=== PATIENT | female | born 1935 | race Caucasian/White ===

== ENCOUNTER 2017-05-15 14:01 | Inpatient (IN) | payer MEDICARE ==
[~2017-05-15] VITALS: Ht 160 cm; Wt 95.0 kg
[~2017-05-15 14:01] MED LIST: AMARYL4 MG PO; APAP/CODEINE ELI5 M1 PO; ASPIR 8181 MG PO; BENICAR; FISH OIL 1,001000 M2 PO; GLUCOPHAGE XR500 MG; GLUCOPHAGE1000 MG PO; GLUCOSAMINE HC500 MG PO; HYDROCODON-ACE1 EAC7 PO; HYDROCODONE-AP1 EAC6 PO; KEFLEX500 M1 PO; LISINOPRIL; LOSARTAN POTAS100 MG PO; MOBIC; MULTIVITAMINS1 EAC7 PO; NITROGLYCERIN0.4 MG SUBLING; OMEPRAZOLE 20 M20 M1 PO; PACERONE 200 M200 M1 PO; PLAVIX 75 MG TA75 M1 PO; PROAIR HFA8.5 GM IH; PROBIOTIC1 EAC1 PO; TOPROL XL50 MG PO; TUMS PO; TYLENOL325 MG PO; ZOCOR; ZOCOR20 MG PO; ZPAK PO
[2017-05-15 14:07] VITALS: BP 155/83
[2017-05-15] MEDS ORDERED: LISINOPRIL10 MG PO (14:11)
[2017-05-15 15:59] LABS: MCH 28.9 pg (26.0-34.0); MCHC 32.7 g/dL (28.0-37.0); MCV 88.4 fL (80.0-100.0); MPV 9.2 fl. (7.2-11.1); NUCLEATED RBCS 0 /100WBC; PLATELET COUNT* 178 thou/uL (150-400); RBC 4.86 mil/uL (4.20-5.00); RDW-CV 14.6 % (10.5-14.5); WBC 16.9 thou/uL (4.0-11.0)
[2017-05-15 16:04] LABS: APTT 21.6 Seconds (25.0-31.3); INR 1.1; PROTIME 10.6 Seconds (9.20-11.50)
[2017-05-15 16:14] LABS: CALCIUM 8.9 mg/dL (8.5-10.1); CREATININE 1.6 mg/dL (0.6-1.3); POTASSIUM 4.2 mmol/L (3.5-5.1)
[2017-05-15 16:17] LABS: ABSOLUTE LYMPHOCYTES 0.8 thou/uL (0.8-5.3); ABSOLUTE MONOCYTES 0.5 thou/uL (0.0-1.2); ABSOLUTE NEUTROPHILS 15.5 thou/uL (1.6-8.1); ATYPICAL LYMPHS 2 %; PLATELET ESTIMATE ADEQUATE
[2017-05-15 16:19] LABS: ALBUMIN 3.3 g/dL (3.4-5.0); TOTAL BILIRUBIN 0.5 mg/dL (<0.1-1.0); TOTAL PROTEIN 6.7 g/dL (6.4-8.2)
[2017-05-15 18:37] LABS: URINE BILIRUBIN NEGATIVE (Negative); URINE BLOOD NEGATIVE (Negative); URINE CLARITY CLEAR; URINE COLOR YELLOW; URINE GLUCOSE-RANDOM NEGATIVE (Negative); URINE KETONES NEGATIVE (Negative); URINE LEUKOCYTES-REFLEX NEGATIVE (Negative); URINE NITRITE-REFLEX NEGATIVE (Negative); URINE PROTEIN NEGATIVE (Negative); URINE SPECIFIC GRAVITY >= 1.030 (1.005-1.030); URINE UROBILINOGEN 0.2 E.U./dl (0.2-1.0)
[2017-05-15 22:50] VITALS: BP 125/55
[2017-05-15 23:05] VITALS: BP 126/60
[2017-05-16 04:00] VITALS: BP 119/63
[2017-05-16 05:16] LABS: ABSOLUTE EOSINOPHILS 0.1 thou/uL (0.0-0.7); ABSOLUTE LYMPHOCYTES 1.6 thou/uL (0.8-5.3); ABSOLUTE MONOCYTES 0.8 thou/uL (0.0-1.2); ABSOLUTE NEUTROPHILS 5.4 thou/uL (1.6-8.1); BASOPHILS 0.3 %; EOSINOPHILS 1.4 %; HEMATOCRIT 38.1 % (37.0-47.0); HEMOGLOBIN 12.8 gm/dL (12.0-15.0); LYMPHOCYTES 20.6 %; MCH 29.5 pg (26.0-34.0); MCHC 33.6 g/dL (28.0-37.0); MCV 87.8 fL (80.0-100.0); MONOCYTES 10.3 %; MPV 9.6 fl. (7.2-11.1); NUCLEATED RBCS 0 /100WBC; PLATELET COUNT* 163 thou/uL (150-400); POLYS 67.4 %; RBC 4.33 mil/uL (4.20-5.00); RDW-CV 14.6 % (10.5-14.5)
[2017-05-16 05:34] LABS: CALCIUM 8.5 mg/dL (8.5-10.1); CREATININE 1.2 mg/dL (0.6-1.3); POTASSIUM 3.8 mmol/L (3.5-5.1)
--- NOTE | 2017-05-16 07:02 | NUR ---
Pt arrived from ED at 2245. Pt states she was down there a "long time,' but is now grateful to be on a "real bed." VSS. Reports pain and stiffness to L shoulder, which was that way prior to her fall at home. States she lives alone, but daughters check on her frequently. Pt states she fell backward in her garage. States pain to back of head is much better since they removed the collar in ED, but does have some pain to her back and her legs R/T her fall. Pleasant and cooperative. Up to BSC X1 mod assist. Will continue to monitor.
[2017-05-16 08:05] VITALS: BP 139/61
[2017-05-16 12:51] VITALS: BP 115/65
[2017-05-16 17:39] VITALS: BP 117/64
--- NOTE | 2017-05-16 18:41 | NUR ---
ASSUMED CARE OF PT AT 0735. PT CONTINUES TO BE A&O X4 CALM, COOPERATIVE, BUT FORGETFUL AT TIMES. PT HAS BEEN UP WITH 1 ASSIST AND A WALKER IN HER ROOM AND AMBULATING TO THE RESTROOM WITH LITTLE MORE THAN SBA. PT HAS ATE GREATER THAN 75% OF ALL MEALS TODAY. PT VSS ON ROOM AIR AND PT HAS BEEN TRACING NSR ON THE MATHEMATICAL SCIENCES PROFESSOR. PT WENT DOWN TO MRI THIS AFTERNOON FOR A THORACIC AND LUMBAR SPINE STUDY. PT HAS HAD C/O BACK AND RIGHT SHOULDER PAIN TODAY BUT DENIES THE NEED FOR PHARMACOLOGICAL INTERVENTION. PT CURRENTLY RESTING IN BED WITH THE TV ON. NURSING WILL CONTINUE TO MONITOR.
[2017-05-16 20:00] VITALS: BP 95/68
[2017-05-16 22:06] LABS: IgG 754 mg/dL (700-1600); IgM 89 mg/dL (26-217)
[2017-05-16 23:38] VITALS: BP 143/65
--- NOTE | 2017-05-17 03:40 | NUR ---
PT ALERT ORIENTED. TELEMETRY SHOWS SR. ON RA. NS AT 80MLS/HR. WILL CONTINUE TO MONITOR.
[2017-05-17 04:00] VITALS: BP 140/60
[2017-05-17 09:06] LABS: IgA 156 mg/dL (64-422)
[2017-05-17 10:51] VITALS: BP 152/75
--- NOTE | 2017-05-17 15:43 | NUR ---
PT DISCHARGED HOME WITH DAUGHTER. PT AND DAUGHTER VERBALIZED UNDERSTANDING OF DC INSTRUCTIONS. PT TOOK ALL PERSONAL BELONGINGS AT TIME OF DISCHARGE. PT VSS, NO C/O PAIN OR DISTRESS, SKIN WARM DRY AND INTACT.
[2017-05-19 10:10] LABS: ANA INTERPRETATION Positive (Negative)
--- NOTE | 2017-05-21 19:10 | CON ---
[address] [address] CONSULTATION Name: OSWALDO BRUNNER V Room: [address] IN M.R.#: [id number] Admission: 05/15/17 Attend Phys: Allen Chowdary MD Discharge: 05/17/17 Date of : 33 Report #: [id number] THIS REPORT FOR: //name// CC: Allen Viera DATE OF SERVICE: 05/16/2017 HISTORY OF PRESENT ILLNESS: This is an 81-year-old female patient who was evaluated by me for falls. The patient is somewhat of a reluctant historian. She tries to underplay her symptoms. Initially, she indicated she had only one fall, but subsequently it would appear that this patient had multiple falls. It looks like she goes down in a slow motion. It looks like she was conscious during those episodes. She did not hit her head. She does not have any tonic-clonic activity associated with these falls. These falls came spontaneously and did not start in relation to any trauma. REVIEW OF SYSTEMS: Indicates that this patient had an evaluation in the Emergency Room and that she has a finding consistent with a meningioma on the left side. It does not look like she had any other CAT scan recently, but there is a report in the computer from 2008, and she did have an MRI of the brain with and without contrast at that time and that did not show any definite abnormality. There is a large amount of records in the computer, and this patient had been admitted here with chest pain and was diagnosed with IL in 2017. She does not recall why she had an MRI in 2008. She does indicate she is a diabetic. She has a history of multiple other problems including urinary tract infection, weakness, cardiomyopathy. Records indicate she also has a history of atrial fibrillation. She feels back to her baseline, and she does not believe that she has any new eye, ENT, cardiac, respiratory, GI, , musculoskeletal, constitutional, dermatological, hematological, psychiatric, throat, allergic symptom associated with present symptomatology. PAST MEDICAL HISTORY: Positive for hysterectomy and cardiac problems. FAMILY HISTORY: Negative for early age strokes. SOCIAL HISTORY: She does not smoke or drink any alcohol. PHYSICAL EXAMINATION: Indicates she is alert. She is responsive. Her speech, concentration, fund of knowledge and memory are at her baseline. Cranial nerve examination 2-12 looks unremarkable. Neuromuscular examination, it looks like she is weak in all 4 extremities, more so on the left side as compared to the right side. Her position sense is present. Her reflexes are diminished, but that may be secondary to her diabetes. Her tone looks unremarkable. There is no meningeal sign. There [place] [address] CONSULTATION Name: OSWALDO BRUNNER V Room: [address] IN M.R.#: [id number] Admission: 05/15/17 Attend Phys: Allen Chowdary MD Discharge: 05/17/17 Date of : 33 Report #: [id number] She is a very well-developed individual who does not have any dysmorphic features of eyes, ears and face. Her vision and hearing look adequate. Heart looks irregular, but looks like she has a history of atrial fibrillation, no respiratory difficulty or rhonchi was seen. Pulses are palpable. She has no edema, cyanosis or jaundice. She has no thyroid mass or carotid bruit. VITAL SIGNS: Her blood pressure is 139/61, pulse is 73, temperature is 98.2. LABORATORY DATA: Indicates a normal sodium and normal platelet count. She did have a CT scan of the head and an MRI and MRI does demonstrate a meningioma. IMPRESSION: 1. Meningioma, which appeared to have developed since 2008 because MRI of the brain in 2008 did not show this. It still appeared to be an incidental finding and will not be able to explain the patient's symptoms. 2. Multiple episodes of either syncope or falls of unknown etiology for the moment, for which she needs further workup. 3. Weakness, which appeared to be more prominent on the left side as compared to the right side. 4. Peripheral neuropathy, which is expected with diabetes, but other causes need to be excluded. RECOMMENDATIONS: 1. Get evaluation by PT, OT. 2. She is going to be evaluated by Cardiology. 3. We will get an EEG done. 4. I would like to get spine workup done because she is complaining of spine problems and would like to make sure there is no spine pathology, which is contributing to her symptoms. I am not sure whether she is going to stay here or not because she is pretty eager to go home, but she might because I did tell her that she needs to get this workup done and hopefully she will agree. Thank you very much for this referral. <ELECTRONICALLY SIGNED> By: Doc Damon MD 05/21/17 1910 1101 1232Pjosafat Damon MD /nt
--- NOTE | 2017-05-22 11:08 | CON ---
[address] [address] CONSULTATION Name: BRUNNEROSWALDO V Room: [address] IN .R.#: [id number] Admission: 05/15/17 Attend Phys: Allen Chowdary MD Discharge: 05/17/17 Date of : 34 Report #: [id number] THIS REPORT FOR: //name// CC: Allen Viera DRAFTER CARTOGRAPHIC: Jaylan Murphy MD [facility] CHIEF COMPLAINT: Syncope, brain mass. HISTORY OF PRESENT ILLNESS: The patient is an 81-year-old female who had a fall episode and on her CT scan, there was a concern for possible meningioma but no evidence of intracranial hemorrhage apparently. We are asked to see her because of her fall . Upon historical data and evaluation of the patient, the patient reports she kind of slipped and fell rather than lost consciousness. She denied palpitation, chest pain before the event. On telemetry, she has been in the sinus rhythm with sinus arrhythmia, but no documented arrhythmia or cardiac pauses. She presents relatively hemodynamically stable with blood pressures in the 120s-150 systolic. Historically, she denies any orthostasis type symptoms. From a cardiovascular standpoint, she is clinically without chest pain or pressure. Initial cardiac markers are unremarkable. PAST MEDICAL HISTORY: She presented with a STEMI in November of last year and occluded her mid LAD, but it was successfully treated with a bare metal stent per Dr. Murphy and she has been on Plavix. She has residual ejection fraction in the 45% range. She has remote history of PAF and has been on amiodarone. She has hypertension, hyperlipidemia, diabetes, mild chronic kidney disease. HOME MEDICATIONS: Aspirin, Plavix. Her aspirin dose is 81 mg daily. She is on glimepiride 4 mg daily, lactobacillus, lisinopril 10 mg daily, losartan 100 mg daily, metformin 1000 mg p.o. b.i.d., nitroglycerin p.r.n., omeprazole 20 mg daily, Zocor 20 mg daily. REVIEW OF SYSTEMS: CENTRAL NERVOUS SYSTEM: No seizure or paralysis. GENERAL: No weight loss or fevers. RESPIRATORY: No cough or sputum production. CARDIOVASCULAR: No palpitation or chest discomfort, no orthopnea, no PND. Positive near syncope. Positive edema. ENDOCRINE: Positive diabetes, no thyroid disease. GASTROINTESTINAL: No vomiting, vomiting blood or ulcers. GENITOURINARY: No dysuria or hematuria. HEMATOLOGIC: No anemia or bleeding disorders. ALLERGIES: No seasonal allergies. Positive [place] [address] CONSULTATION Name: ANNETTE BRUNNERSierra Bashir Room: [address]#: [id number] Admission: 05/15/17 Attend Phys: Allen Chowdary MD Discharge: 05/17/17 Date of : 34 Report #: [id number] PSYCHIATRIC: No depression or anxiety. MUSCULOSKELETAL: Positive arthritis. SKIN: No rashes. EYES: She does not use glasses. EARS, NOSE, THROAT AND MOUTH: No decreased hearing. No bleeding from nose or dentures. PHYSICAL EXAMINATION: VITAL SIGNS: Blood pressure this morning is 139/61. She is in the sinus rhythm at 73 and her O2 sat is 97% on room air. GENERAL: This is a pleasant elderly female. She is somewhat of a poor historian, in no apparent distress. HEENT: Eyes are intact. No facial asymmetry. NECK: Supple. No jugular venous distention. CARDIOVASCULAR: Regular. I cannot hear a murmur. LUNGS: Clear to auscultation. ABDOMEN: Soft, nontender. EXTREMITIES: There is no peripheral edema. SKIN: Warm and dry. LABORATORY DATA: Electrocardiogram demonstrates a sinus rhythm with normal ST segments artifact. Hemoglobin is 12.8. Sodium is 141, potassium 3.8, chloride is 107, CO2 is 24, BUN is 20, creatinine is 1.2. Transfer labs from [facility] showed a normal troponin and a well circumscribed 2.7 x 2.8 x 2.3 cm along the left frontoparietal lobe consistent with a meningioma. There was no appearance apparently for hematoma. IMPRESSION: 1. Brain mass. She is being evaluated by Neurology. 2. Fall. Given her fall history and potential cause from this brain mass, I elected to discontinue her Plavix. 3. Coronary artery disease. She has no evidence of angina and I would like to continue with baby aspirin. She had a bare metal stent placed last fall which we can treat with aspirin alone at this point. She remains on continued fall risk because of mass effect of her brain mass. 4. Hypertension. This is stable. 5. Paroxysmal atrial fibrillation. She obviously is not an anticoagulation candidate and we will continue with aggressive medical therapy to maintain a sinus rhythm, currently she is in sinus rhythm and I do not think that her atrial fibrillation was presenting cause of her fall. I would like to restart her amiodarone if possible. She was only taking 200 mg a day. <ELECTRONICALLY SIGNED> By: Soren Belle MD, [facility] 05/22/17 1108 1106 1249Marco Amna Belle MD, FACC /nt
== END 2017-05-17 11:47 | disposition home or self-care (01) | DRG 683 ==
LOC: M.ERS 14:01 → M.TBA-ER 21:10 → M.2W 21:10
PROVIDERS: Personal Emergency Response Attendant; Psychiatry & Neurology Neuromuscular Medicine; ADMIT Internal Medicine
DX: N17.9 Acute kidney failure, unspecified (principal); D68.69 Other thrombophilia; I48.0 Paroxysmal atrial fibrillation; E86.0 Dehydration; D32.9 Benign neoplasm of meninges, unspecified; E78.00 Pure hypercholesterolemia, unspecified; G62.9 Polyneuropathy, unspecified; I25.10 Atherosclerotic heart disease of native coronary artery without angina pectoris; E11.22 Type 2 diabetes mellitus with diabetic chronic kidney disease; I12.9 Hypertensive chronic kidney disease with stage 1 through stage 4 chronic kidney disease, or unspecified chronic kidney disease; W18.39XA Other fall on same level, initial encounter; Z90.710 Acquired absence of both cervix and uterus; Z98.42 Cataract extraction status, left eye; Z98.41 Cataract extraction status, right eye; Z79.899 Other long term (current) drug therapy; Z88.2 Allergy status to sulfonamides; Y93.89 Activity, other specified; Y92.89 Other specified places as the place of occurrence of the external cause; Y99.8 Other external cause status

== ENCOUNTER → 2017-11-13 | Outpatient (CLI) | payer MEDICARE ==
[~2017-11-13] MED LIST changes: +LISINOPRIL10 MG PO
[2017-11-13 16:18] LABS: ALBUMIN 3.5 g/dL (3.4-5.0); DIRECT BILIRUBIN 0.1 mg/dL (<0.1-0.3); TOTAL BILIRUBIN 0.4 mg/dL (<0.1-1.0); TOTAL PROTEIN 7.2 g/dL (6.4-8.2)
== END ==
LOC: M.LAB 15:16
PROVIDERS: Internal Medicine Cardiovascular Disease
DX: Z51.81 Encounter for therapeutic drug level monitoring (principal); Z79.899 Other long term (current) drug therapy

== ENCOUNTER 2020-01-13 22:12 | Inpatient (IN) | payer MEDICARE ==
[~2020-01-13] VITALS: Ht 162.6 cm; Wt 71.7 kg
[2020-01-13 22:14] VITALS: BP 107/82
[2020-01-13] MEDS ORDERED: PLAVIX 75 MG TA75 MG PO (22:22)
[2020-01-13] MEDS ORDERED: AMIODARONE HCL400 MG PO (22:22)
[2020-01-13] MEDS ORDERED: PROBIOTIC1 EAC7 PO (22:23)
[2020-01-13] MEDS ORDERED: TOPROL XL25 MG PO (22:24)
[2020-01-13 22:54] LABS: HEMATOCRIT 47.1 % (37.0-47.0); HEMOGLOBIN 15.4 gm/dL (12.0-15.0); MCH 29.2 pg (26.0-34.0); MCHC 32.6 g/dL (28.0-37.0); MCV 89.5 fL (80.0-100.0); MPV 9.8 fl. (7.2-11.1); NUCLEATED RBCS 0 /100WBC; PLATELET COUNT* 140 thou/uL (150-400); RBC 5.27 mil/uL (4.20-5.00); RDW-CV 13.8 % (10.5-14.5)
[2020-01-13 23:05] LABS: CALCIUM 9.4 mg/dL (8.5-10.1); CREATININE 1.8 mg/dL (0.6-1.3); POTASSIUM 3.9 mmol/L (3.5-5.1)
[2020-01-13 23:06] LABS: INR 1.1; PROTIME 11.7 Seconds (9.20-11.50)
[2020-01-13 23:14] LABS: URINE BILIRUBIN NEGATIVE (Negative); URINE BLOOD 3+ (Negative); URINE CLARITY CLEAR; URINE COLOR DARK YELLOW; URINE GLUCOSE-RANDOM NEGATIVE (Negative); URINE KETONES TRACE (Negative); URINE LEUKOCYTES-REFLEX NEGATIVE (Negative); URINE NITRITE-REFLEX NEGATIVE (Negative); URINE PROTEIN 2+ (Negative); URINE SPECIFIC GRAVITY >= 1.030 (1.005-1.030); URINE UROBILINOGEN 0.2 E.U./dl (0.2-1.0)
[2020-01-13 23:19] LABS: ALBUMIN 3.6 g/dL (3.4-5.0); TOTAL PROTEIN 7.2 g/dL (6.4-8.2)
[2020-01-14 00:10] LABS: ABSOLUTE LYMPHOCYTES 0.8 thou/uL (0.8-5.3); ABSOLUTE MONOCYTES 0.4 thou/uL (0.0-1.2); ABSOLUTE NEUTROPHILS 18.8 thou/uL (1.6-8.1); PLATELET ESTIMATE DECREASED
[2020-01-14 00:16] LABS: HYALINE CASTS 4-10 Moderate /LPF (None Seen); SQUAMOUS >10 Many /LPF (0-3)
[2020-01-14 00:18] LABS: CRYSTALS None Seen /LPF (None Seen); FINE GRANULAR CASTS 0-3 Few /LPF (None Seen); URINE RBC 3-10 Few /HPF (0-2)
[2020-01-14 02:00] VITALS: BP 108/63
[2020-01-14 02:02] VITALS: BP 119/49
[2020-01-14 08:45] VITALS: BP 106/55
[2020-01-14 11:20] LABS: ALBUMIN 2.8 g/dL (3.4-5.0); CALCIUM 8.6 mg/dL (8.5-10.1); CREATININE 1.4 mg/dL (0.6-1.3); POTASSIUM 3.7 mmol/L (3.5-5.1); TOTAL BILIRUBIN 0.7 mg/dL (<0.1-1.0); TOTAL PROTEIN 5.8 g/dL (6.4-8.2)
[2020-01-14 11:59] LABS: CHOLESTEROL 97 mg/dL (<200); HDL CHOLESTEROL 48 mg/dL (>40); LDL CHOLESTEROL 38 mg/dL (<100); TRIGLYCERIDE 57 mg/dL (<150); VLDL 11 mg/dL (<40)
[2020-01-14 12:00] VITALS: BP 104/51; BP 164/68
[2020-01-14 12:00] LABS: SERUM ASSESSMENT Clear
[2020-01-14 14:26] LABS: ABSOLUTE LYMPHOCYTES 2.3 thou/uL (0.8-5.3); ABSOLUTE MONOCYTES 1.2 thou/uL (0.0-1.2); ABSOLUTE NEUTROPHILS 12.9 thou/uL (1.6-8.1); BASOPHILS 0.3 %; HEMOGLOBIN 13.5 gm/dL (12.0-15.0); MCH 28.6 pg (26.0-34.0); MCHC 32.8 g/dL (28.0-37.0); MCV 87.4 fL (80.0-100.0); MONOCYTES 7.4 %; MPV 9.6 fl. (7.2-11.1); NUCLEATED RBCS 0 /100WBC; PLATELET COUNT* 197 thou/uL (150-400); POLYS 78.3 %; WBC 16.4 thou/uL (4.0-11.0)
[2020-01-14 16:00] VITALS: BP 103/45
[2020-01-14 20:00] VITALS: BP 103/56
[2020-01-15] VITALS (7 sets, daily range): BP systolic 112–161; BP diastolic 58–80
[2020-01-15 02:15] LABS: ABSOLUTE LYMPHOCYTES 0.9 thou/uL (0.8-5.3); ABSOLUTE MONOCYTES 0.2 thou/uL (0.0-1.2); ABSOLUTE NEUTROPHILS 11.9 thou/uL (1.6-8.1); BASOPHILS 0.2 %; HEMATOCRIT 40.9 % (37.0-47.0); HEMOGLOBIN 13.4 gm/dL (12.0-15.0); LYMPHOCYTES 6.7 %; MCH 28.8 pg (26.0-34.0); MCHC 32.7 g/dL (28.0-37.0); MCV 88.2 fL (80.0-100.0); MONOCYTES 1.3 %; MPV 9.6 fl. (7.2-11.1); NUCLEATED RBCS 0 /100WBC; PLATELET COUNT* 188 thou/uL (150-400); POLYS 91.8 %; RBC 4.64 mil/uL (4.20-5.00); RDW-CV 14.4 % (10.5-14.5)
[2020-01-15 02:32] LABS: ALBUMIN 2.6 g/dL (3.4-5.0); CALCIUM 8.2 mg/dL (8.5-10.1); CREATININE 1.2 mg/dL (0.6-1.3); POTASSIUM 4.1 mmol/L (3.5-5.1); TOTAL BILIRUBIN 0.4 mg/dL (<0.1-1.0); TOTAL PROTEIN 5.7 g/dL (6.4-8.2)
[2020-01-15 02:35] LABS: TROPONIN-I LEVEL 1.89 ng/mL (<0.06)
[2020-01-15 03:35] LABS: PREALBUMIN 16.9 mg/dL (18.0-35.7)
[2020-01-15 05:36] LABS: GLYCOHEMOGLOBIN (HGB A1C) 5.7 % (4.8-5.6)
[2020-01-16] VITALS (13 sets, daily range): BP systolic 124–161; BP diastolic 59–87
--- NOTE | 2020-01-16 17:50 | 2DMMODE ---
[place] [address] 2 D/M-MODE ECHOCARDIOGRAM Name: OSWALDO BRUNNER Mckay Room: [address] IN [place].#: [id number] Admission: 01/14/20 Attend Phys: Ralf Calle Discharge: Date of : 33 Date of Service: 01/16/20 1750 Report #: [id number] THIS REPORT FOR: cc: Morelia Viera,Morelia Au,Live Tovar MD [facility] ~ APPROVED REPORT Study performed: 01/16/2020 11:16:27 EXAM: Comprehensive 2D, Doppler, and color-flow Echocardiogram Patient Location: In-Patient Room #: [facility] Status: routine BSA: 1.77 HR: 61 bpm BP: 152/87 mmHg Rhythm: NSR Other Information Study Quality: Good Indications CVA/TIA Echo Enhancing Agent Indication: Rule out Shunt Agent(s) / Amount(s) Used: Agitated Saline 10 cc 2D Dimensions IVSd: 12.56 (7-11mm) LVOT Diam: 20.83 (18-24mm) LVDd: 53.40 mm PWd: 12.76 (7-11mm) Ascending Ao: 32.07 (22-36mm) LVDs: 41.86 (25-40mm) Aortic Root: 32.60 mm Volumes Left Atrial Volume (Systole) LA ESV Index: 36.50 mL/m2 Aortic Valve AoV Peak Vance.: 1.78 m/s AO Peak Gr.: 12.74 mmHg LVOT Max P.73 mmHg AO Mean Gr.: 7.88 mmHg LVOT Mean P.86 [place] [address] 2 D/M-MODE ECHOCARDIOGRAM Name: OSWALDO BRUNNER V Room: [address] IN .R.#: [id number] Admission: 01/14/20 Attend Phys: Ralf Calle Discharge: Date of : 34 Date of Service: 01/16/20 1750 Report #: [id number] LVOT Max V: 0.97 m/s AO V2 VTI: 31.88 cm LVOT Mean V: 0.62 m/s SALMA (VTI): 1.92 cm2 LVOT V1 VTI: 18.00 cm Mitral Valve E/A Ratio: 0.92 MV Decel. Time: 164.30 ms MV E Max Vanec.: 0.90 m/s MV PHT: 47.65 ms MVA (PHT): 4.62 cm2 TDI E/Lateral E': 10.00 E/Medial E': 15.00 Medial E' Vance.: 0.06 m/s Lateral E' Vance.: 0.09 m/s Pulmonary Valve PV Peak Vance.: 0.90 m/s PV Peak Gr.: 3.27 mmHg Tricuspid Valve RAP Estimate: 5.00 mmHg TR Peak Gr.: 27.11 mmHg RVSP: 32.00 mmHg PA Pressure: 32.00 mmHg Left Ventricle The left ventricle is normal size. Regional wall motion abnormalities are noted with anteroapical hypo-akinesis. There is normal left ventricular wall thickness. Left ventricular systolic function is moderately decreased. LVEF is 35%. Grade I - abnormal relaxation pattern. Right Ventricle The right ventricle is normal size. The right ventricular systolic function is normal. Atria Left atrium is mildly dilated. The interatrial septum is intact with no evidence for an atrial septal defect. The right atrium size is normal. Aortic Valve Mild aortic valve sclerosis. No aortic regurgitation is present. No hemodynamically significant valvular aortic stenosis. Mitral Valve The mitral valve is normal in structure. Trace [place] [address] 2 D/M-MODE ECHOCARDIOGRAM Name: OSWALDO BRUNNER V Room: [address] IN [facility]#: [id number] Admission: 01/14/20 Attend Phys: Ralf Calle Discharge: Date of : 34 Date of Service: 01/16/20 1750 Report #: [id number] No evidence of mitral valve stenosis. Tricuspid Valve The tricuspid valve is normal in structure. Mild tricuspid regurgitation. Mild pulmonary hypertension. Pulmonic Valve The pulmonary valve is normal in structure. There is no pulmonic valvular regurgitation. Great Vessels The aortic root is normal in size. IVC is normal in size and collapses >50% with inspiration. Pericardium There is no pericardial effusion. <Conclusion> The left ventricle is normal size. There is normal left ventricular wall thickness. Left ventricular systolic function is moderately decreased. LVEF is 35%. Grade I - abnormal relaxation pattern. The right ventricle is normal size. Left atrium is mildly dilated. The right atrium size is normal. Mild aortic valve sclerosis. No aortic regurgitation is present. No hemodynamically significant valvular aortic stenosis. The mitral valve is normal in structure. The tricuspid valve is normal in structure. Mild tricuspid regurgitation. Mild pulmonary hypertension. IVC is normal in size and collapses >50% with inspiration. There is no pericardial effusion. Regional wall motion abnormalities are noted with anteroapical hypo-akinesis. The interatrial septum is intact with no evidence for an atrial septal defect. <ELECTRONICALLY SIGNED> By: Live Cortes MD, FACC 01/16/201749 49 49 Lvie Cortes MD, FACC /INF
--- NOTE | 2020-01-16 18:27 | CARD ---
[address] [address] CARDIAC CATH REPORT Name: BRUNNEROSWALDO V Room: [address] IN [facility]#: [id number] Admission: 01/14/20 Attend Phys: Bindu Mcghee Discharge: Date of : 34 Report #: [id number] THIS REPORT FOR: //name// cc: Morelia Viera Anna S. DO ~ APPROVED REPORT Study performed: 01/16/2020 15:54:36 Patient Details Patient Status: Out-Patient Room #: The patient is a 84 year-old female Event Personnel Live Cortes Director Credit Risk, Tyshawn Santiago RN Manager [employer]able [employer], Frankie Flores SENIOR SOFTWARE ANALYST Monitor, Guera Siegel RTR Scrub Procedures Performed Art Access - R femoral artery* Left Heart Cath w/or w/o Coronaries [id number] [facility] Place w/wo Plasty Single OM [id number] Hemostasis w/ Angioseal Indication Non-STEMI Risk Factors Obesity, Hypercholesterolemia, Hypertension Previous Procedures/Diagnoses Previous PCI, Previous CT Procedure Narrative The patient was brought electively to the Cardiac Catheterization Laboratory and was prepped and draped in a sterile manner. The right femoral was infiltrated with 2% Lidocaine subcutaneous anesthesia. The right coronary system was accessed and visualized with a JR4 catheter. The left coronary system was accessed and visualized with a JL4 catheter. The left ventricle was accessed and visualized with a PIG Tail catheter. Left ventriculogram was performed in KIMBLE projection. Pre-demployment femoral angiogram was performed . Closure device was deployed with a Fr AngioSeal. The patient tolerated the procedure well and there were no complications associated with the procedure[place] Intra[place] [address] CARDIAC CATH REPORT Name: OSWALDO BRUNNER V Room: [address] IN [facility]#: [id number] Admission: 01/14/20 Attend Phys: Bindu Mcghee Discharge: Date of : 34 Report #: [id number] Sedation start time: 1603 Case end Time: 1645 Fluoro Time: 11.6 minutes Dose: DAP 201057 cGycm2 1591 mGy Contrast Type and Amount: Visipaque 200 ml Diagnostic Cath Left Main 0% narrowing LAD 100% proximal LAD occlusion with prominent collaterals from the distal right coronary artery filling the mid and distal LAD Circumflex 80% stenosis of the proximal portion of the prominent first marginal branch followed by sequential 40% mid vessel narrowings Right Coronary Large dominant vessel with 30% proximal and mid vessel narrowing with prominent collaterals from the distal right coronary artery through the septum filling the mid and distal LAD Left Ventriculography The left ventricle is mildly dilated in size with contractility. The left ventricular ejection fraction is estimated to be 35%. Left ventricular wall motion abnormalities are present. There is no mitral insufficiency. Anteroapical hypo - akinesis was noted Hemodynamics The aortic pressure is 157/67 mmHg with a mean of 105 mmHg. The left ventricular pressure is 164/9 mmHg with a mean of mmHg. The left ventricular end diastolic pressure is 24 mmHg. PCI Technique Lesion Patient was preloaded with Angiomax IV 10.5 ml. Percutaneous coronary intervention was performed on the first obtuse marginal branch segment. The lesion stenosis prior to intervention was 80% with DEANNA 3 flow. A EBU 4 Guide Catheter was used to engage the ostium. A IG: BMW 190cm Interventional Guidewire was used to cross the lesion. BALLOON DILATION A Balloon catheter Trek RX 2.5 X 8 was inserted and inflated up to 12.00atm for 16seconds. Additional Inflation: 12.00atm for 13seconds. STENT DEPLOYMENT A drug-eluting stent [place] RX Stent 2.25X8mm was inserted and inflated up to 16.00atm for 10seconds. Additional Inflation: 18.00atm [place] [address] CARDIAC CATH REPORT Name: OSWALDO BRUNNER Mckay Room: [address]#: [id number] Admission: 01/14/20 Attend Phys: Bindu Mcghee Discharge: Date of : 34 Report #: [id number] 9seconds. Final angiography reveals 10 % stenosis with DEANNA 3 flow. Conclusion 1. Significant multivessel coronary artery disease characterized by the following: A 100% proximal LAD occlusion with prominent collaterals from the distal right coronary artery through the septum filling the mid and distal LAD B 80% stenosis in the proximal portion of the prominent first marginal branch of the circumflex C 30% proximal and mid right coronary narrowings, this being a large dominant vessel with collateral from the distal right coronary artery to the LAD 2. Moderately severe impairment in global LV function, estimated ejection fraction being 35% with anteroapical hypo-akinesis 3. Moderate elevation of left ventricular end-diastolic pressure at rest 4. successful PCI with deployment of a drug-eluting stent at site of 80% first marginal stenosis with 10% residual narrowing and DEANNA-3 flow to the distal vessel Recommendations Daily ASA with Plavix for at least one year Aggressive Medical Therapy Medications Administered Aspirin (any) Clopidogrel Diagnostic Cath Approved by: Live Cortes MD Date/Time: 01/16/2020 18:24:47 <ELECTRONICALLY SIGNED> By: Live Cortes MD, FACC 01/16/201826 26 26Live Cortes MD, FACC /INF
[2020-01-17] VITALS (7 sets, daily range): BP systolic 110–157; BP diastolic 64–72
[2020-01-17 04:18] LABS: ABSOLUTE EOSINOPHILS 0.4 thou/uL (0.0-0.7); ABSOLUTE MONOCYTES 0.7 thou/uL (0.0-1.2); BASOPHILS 0.2 %; EOSINOPHILS 3.5 %; HEMATOCRIT 37.5 % (37.0-47.0); HEMOGLOBIN 12.5 gm/dL (12.0-15.0); LYMPHOCYTES 19.6 %; MCH 28.9 pg (26.0-34.0); MCHC 33.4 g/dL (28.0-37.0); MCV 86.6 fL (80.0-100.0); MONOCYTES 6.6 %; NUCLEATED RBCS 0 /100WBC; PLATELET COUNT* 237 thou/uL (150-400); POLYS 70.1 %; RBC 4.33 mil/uL (4.20-5.00); RDW-CV 13.8 % (10.5-14.5)
[2020-01-17 04:43] LABS: ALBUMIN 2.5 g/dL (3.4-5.0); CALCIUM 8.3 mg/dL (8.5-10.1); CREATININE 0.9 mg/dL (0.6-1.3); POTASSIUM 3.1 mmol/L (3.5-5.1); TOTAL BILIRUBIN 0.7 mg/dL (<0.1-1.0); TOTAL PROTEIN 5.5 g/dL (6.4-8.2)
--- NOTE | 2020-01-17 08:29 | EKG ---
[place] [address] ELECTROCARDIOGRAM REPORT Name: OSWALDO BRUNNER V Room: [address] ADM IN M.R.#: [id number] Admission: 01/14/20 Attend Phys: Ralf Calle Discharge: Date of : 33 Date of Service: 01/13/202224 Report #: [id number] THIS REPORT FOR: //name// [facility] ED Test Date: 2020-01-13 Test Time: 22:25:23 Pat Name: OSWALDO BRUNNER Department: Room: [facility] Gender: F Kennel Keeper: COREEN : 1935 Requested By: Gail Nieto Order Number: [id number] MD: Jason Abad Measurements Intervals [place] Rate: 95 P: 31 W[place]: 168 QRS: -47 QRSD: 166 T: 157 QT: 428 QTc: 538 Interpretive Statements Sinus tachycardia Ventricular trigeminy Probable left atrial enlargement RBBB and LAFB Abnormal T, consider ischemia, lateral leads ds Electronically Signed On 01-17-2020 8:28:50 CUSTOMER QUALITY ENGINEER by Jason Abad [email or web address] <ELECTRONICALLY SIGNED> By: Jamil Abad MD, FAC 01/17/2028 24 24 Jamil Abad MD, [facility] /EPI
--- NOTE | 2020-01-17 08:30 | EKG ---
[place] [address] ELECTROCARDIOGRAM REPORT Name: OSWALDO BRUNNER V Room: [address] ADM IN M.R.#: [id number] Admission: 01/14/20 Attend Phys: Ralf Calle Discharge: Date of : 33 Date of Service: 01/14/20 0150 Report #: [id number] THIS REPORT FOR: //name// [facility] ED Test Date: 2020-01-14 Test Time: 01:50:13 Pat Name: OSWALDO BRUNNER Department: Room: [address] Gender: F Behavioral Intervention Specialist: : 1935 Requested By: Anita Green Order Number: [id number] Reading MD: Jason Abad Measurements Intervals [place] Rate: 84 P: 29 ME: 171 QRS: -43 QRSD: 168 T: 163 QT: 451 QTc: 534 Interpretive Statements Sinus rhythm Ventricular trigeminy Probable left atrial enlargement RBBB and LAFB LVH with secondary repolarization abnormality Compared to ECG 01/13/2020 22:25:23 Left ventricular hypertrophy now present Early repolarization now present Sinus tachycardia no longer present T-wave abnormality no longer present Possible ischemia no longer present Electronically Signed On 01-17-2020 8:30:11 PLANT SAFETY LEADER by Jason Abad [email or web address] <ELECTRONICALLY SIGNED> By: Jamil Abad MD, [facility] 01/17/20829 9 9 Jamil Abad MD, [facility] /EPI
--- NOTE | 2020-01-17 08:33 | EKG ---
[place] [address] ELECTROCARDIOGRAM REPORT Name: OSWALDO BRUNNER V Room: [address] ADM IN .R.#: [id number] Admission: 01/14/20 Attend Phys: Ralf Calle Discharge: Date of : 33 Date of Service: 01/14/20 1138 Report #: [id number] THIS REPORT FOR: //name// [facility] Test Date: 2020-01-14 Test Time: 11:38:45 Pat Name: OSWALDO BRUNNER Department: Room: [facility] Gender: F Qa Manager: ATKARUNA : 1935 Requested By: Gail Nieto Order Number: [id number] MD: Jason Abad Measurements Intervals [place] Rate: 82 P: 165 WV: 154 QRS: -136 QRSD: 155 T: 24 QT: 568 QTc: 664 Interpretive Statements Sinus or ectopic atrial rhythm Probable left atrial enlargement IVCD, consider atypical RBBB Probable anterior infarct, age indeterminate Lateral leads are also involved Compared to ECG 01/06/2017 10:04:44 Ectopic atrial rhythm now present Sinus rhythm no longer present Left bundle-branch block no longer present Myocardial infarct finding still present Consider right arm left arm lead reversal Electronically Signed On 01-17-2020 8:33:09 FIRE ALARM REPAIRER by Jason Abad [email or web address] <ELECTRONICALLY SIGNED> By: Jamil Abad MD, [facility] 01/17/20 0833 1138 1138 Jamil Abad MD, [facility] /EPI
--- NOTE | 2020-01-17 08:56 | EKG ---
[place] [address] ELECTROCARDIOGRAM REPORT Name: OSWALDO BRUNNER V Room: [address] ADM IN M.R.#: [id number] Admission: 01/14/20 Attend Phys: Ralf Calle Discharge: Date of : 33 Date of Service: 01/15/20 1034 Report #: [id number] THIS REPORT FOR: //name// [facility] Test Date: 2020-01-15 Test Time: 10:34:38 Pat Name: OSWALDO BRUNNER Department: Room: [address] Gender: F Licensed Prosthetist: ARCELIA : 1935 Requested By: Anita Green Order Number: [id number] Reading MD: Jason Abad Measurements Intervals [place] Rate: 84 P: -8 ND: 158 QRS: -46 QRSD: 165 T: 165 QT: 438 QTc: 518 Interpretive Statements Sinus rhythm RBBB and LAFB Abnormal T, consider ischemia, lateral leads Compared to ECG 01/14/2020 11:38:45 Left anterior fascicular block now present T-wave abnormality now present Possible ischemia now present Ectopic atrial rhythm no longer present Myocardial infarct finding no longer present Electronically Signed On 01-17-2020 8:56:09 NURSING INFORMATICS ANALYST by Jason Abad [email or web address] <ELECTRONICALLY SIGNED> By: Jamil Abad MD, [facility] 01/17/20 [phone] Jamil Abad MD, [facility] /EPI
--- NOTE | 2020-01-17 09:09 | EKG ---
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 : 1935 Requested By: Live Cortes Order Number: [id number] Reading MD: Jason Abad Measurements Intervals [place] Rate: 69 P: 46 MS: 158 QRS: -44 QRSD: 167 T: 160 QT: 460 QTc: 493 Interpretive Statements Sinus rhythm Ventricular premature complex RBBB and LAFB LVH with secondary repolarization abnormality Compared to ECG 01/15/2020 10:34:38 Ventricular premature complex(es) now present Left ventricular hypertrophy now present Early repolarization now present T-wave abnormality no longer present Possible ischemia no longer present Electronically Signed On 01-17-2020 9:09:41 TORCH OPERATOR by Jason Abad [email or web address] <ELECTRONICALLY SIGNED> By: Jamil Abad MD, FAC 01/17/20 0909 2 Jamil Abad MD, [facility] /EPI
[2020-01-17] MEDS ORDERED: KEPPRA 500 MG500 M1 PO (09:53)
[2020-01-18 00:48] VITALS: BP 108/71
[2020-01-18 03:56] VITALS: BP 112/53
[2020-01-18 04:29] LABS: ALBUMIN 2.4 g/dL (3.4-5.0); CALCIUM 8.9 mg/dL (8.5-10.1); POTASSIUM 3.3 mmol/L (3.5-5.1); TOTAL BILIRUBIN 0.8 mg/dL (<0.1-1.0); TOTAL PROTEIN 5.3 g/dL (6.4-8.2)
[2020-01-18 04:39] LABS: ABSOLUTE EOSINOPHILS 0.4 thou/uL (0.0-0.7); ABSOLUTE MONOCYTES 0.9 thou/uL (0.0-1.2); ABSOLUTE NEUTROPHILS 5.3 thou/uL (1.6-8.1); BASOPHILS 0.4 %; EOSINOPHILS 4.1 %; HEMATOCRIT 39.4 % (37.0-47.0); HEMOGLOBIN 13.1 gm/dL (12.0-15.0); LYMPHOCYTES 23.5 %; MCH 28.8 pg (26.0-34.0); MCHC 33.2 g/dL (28.0-37.0); MCV 86.7 fL (80.0-100.0); MPV 9.4 fl. (7.2-11.1); NUCLEATED RBCS 0 /100WBC; PLATELET COUNT* 229 thou/uL (150-400); RBC 4.55 mil/uL (4.20-5.00); RDW-CV 13.8 % (10.5-14.5); WBC 8.6 thou/uL (4.0-11.0)
[2020-01-18 08:00] VITALS: BP 114/77
[2020-01-18 12:00] VITALS: BP 112/74
--- NOTE | 2020-01-18 13:18 | EKG ---
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 : 1935 Requested By: Ralf Calle Order Number: [id number] Leelee MD: Live Cortes Measurements Intervals [place] Rate: 154 P: 66 DC: 217 QRS: -79 QRSD: 149 T: 126 QT: 306 QTc: 490 Interpretive Statements Supraventricular tachycardia with right bundle branch block conduction aberrancy Artifact in lead(s) I,III,aVL Compared to ECG 01/17/2020 05:43:44 Sinus rhythm no longer present Ventricular premature complex(es) no longer present Left ventricular hypertrophy no longer present Early repolarization no longer present Electronically Signed On 01-18-2020 13:18:22 BIODIESEL PLANT SUPERINTENDENT by Live Cortes [email or web address] <ELECTRONICALLY SIGNED> By: Live Cortes MD, [facility] 01/18/20 1318 Live Cortes MD, [facility] /EPI
[2020-01-18 13:45] VITALS: BP 110/68
[2020-01-18 14:20] LABS: CALCIUM 8.5 mg/dL (8.5-10.1); CREATININE 1.2 mg/dL (0.6-1.3); POTASSIUM 3.8 mmol/L (3.5-5.1)
[2020-01-18 14:24] LABS: MAGNESIUM 1.4 mg/dL (1.8-2.4); PHOSPHORUS* 2.1 mg/dL (2.5-4.9)
[2020-01-18 16:00] VITALS: BP 115/64
== END 2020-01-18 18:45 | DRG 246 ==
LOC: M.ERS 22:12 → M.2W 01-14 00:31 → M.TBA-ER 01-14 00:31 → M.2W 01-14 02:38
PROVIDERS: Emergency Medicine; Internal Medicine; Registered Nurse; ADMIT Internal Medicine; ATTEND Internal Medicine
PROC: 027034Z Dilation of Coronary Artery, One Artery with Drug-eluting Intraluminal Device, Percutaneous Approach (ICD-10-PCS; principal; 2020-01-16)
PROC: 4A023N7 Measurement of Cardiac Sampling and Pressure, Left Heart, Percutaneous Approach (ICD-10-PCS; principal; 2020-01-16)
PROC: B215YZZ Fluoroscopy of Left Heart using Other Contrast (ICD-10-PCS; principal; 2020-01-16)
PROC: B211YZZ Fluoroscopy of Multiple Coronary Arteries using Other Contrast (ICD-10-PCS; principal; 2020-01-16)
DX: I21.4 Non-ST elevation (NSTEMI) myocardial infarction (principal); R65.11 Systemic inflammatory response syndrome (SIRS) of non-infectious origin with acute organ dysfunction; N17.0 Acute kidney failure with tubular necrosis; M62.82 Rhabdomyolysis; N30.01 Acute cystitis with hematuria; I42.9 Cardiomyopathy, unspecified; R56.9 Unspecified convulsions; I25.10 Atherosclerotic heart disease of native coronary artery without angina pectoris; I48.0 Paroxysmal atrial fibrillation; E11.22 Type 2 diabetes mellitus with diabetic chronic kidney disease; E78.00 Pure hypercholesterolemia, unspecified; I12.9 Hypertensive chronic kidney disease with stage 1 through stage 4 chronic kidney disease, or unspecified chronic kidney disease; E86.0 Dehydration; B35.1 Tinea unguium; Z20.828 Contact with and (suspected) exposure to other viral communicable diseases; Z96.652 Presence of left artificial knee joint; Z98.41 Cataract extraction status, right eye; Z98.42 Cataract extraction status, left eye; I25.2 Old myocardial infarction; Z90.710 Acquired absence of both cervix and uterus; Z95.5 Presence of coronary angioplasty implant and graft; Z79.84 Long term (current) use of oral hypoglycemic drugs; Z79.899 Other long term (current) drug therapy; Z79.01 Long term (current) use of anticoagulants; Z88.2 Allergy status to sulfonamides

== ENCOUNTER 2020-01-18 18:09 | Inpatient (IN) | payer MEDICARE ==
[~2020-01-18] VITALS: Ht 162.6 cm; Wt 79.4 kg
[~2020-01-18 18:09] MED LIST changes: +AMIODARONE HCL400 MG PO; +KEPPRA 500 MG500 M1 PO; +PLAVIX 75 MG TA75 MG PO; +PROBIOTIC1 EAC7 PO; +TOPROL XL25 MG PO
[2020-01-18 19:00] VITALS: BP 113/60
[2020-01-19 05:08] LABS: HEMATOCRIT 39.6 % (37.0-47.0); MCH 28.9 pg (26.0-34.0); MCHC 32.9 g/dL (28.0-37.0); MCV 87.7 fL (80.0-100.0); MPV 9.3 fl. (7.2-11.1); RBC 4.51 mil/uL (4.20-5.00); RDW-CV 13.7 % (10.5-14.5); WBC 8.4 thou/uL (4.0-11.0)
[2020-01-19 05:39] LABS: CALCIUM 8.8 mg/dL (8.5-10.1); CREATININE 1.1 mg/dL (0.6-1.3); POTASSIUM 3.6 mmol/L (3.5-5.1)
[2020-01-19 10:04] VITALS: BP 119/56
[2020-01-19 11:06] LABS: MAGNESIUM 1.6 mg/dL (1.8-2.4)
[2020-01-19 18:23] LABS: URINE BILIRUBIN NEGATIVE (Negative); URINE BLOOD NEGATIVE (Negative); URINE CLARITY SL CLOUDY; URINE COLOR YELLOW; URINE GLUCOSE-RANDOM NEGATIVE (Negative); URINE KETONES NEGATIVE (Negative); URINE NITRITE-REFLEX NEGATIVE (Negative); URINE PROTEIN NEGATIVE (Negative); URINE UROBILINOGEN 0.2 E.U./dl (0.2-1.0)
[2020-01-19 18:26] LABS: URINE LEUKOCYTES-REFLEX 2+ (Negative)
[2020-01-19 18:30] LABS: SQUAMOUS 4-10 Moderate /LPF (0-3)
[2020-01-19 18:31] LABS: URINE RBC None Seen /HPF (0-2); URINE WBC-REFLEX 6-15 Few /HPF (0-5); WBC CLUMPS Few (None Seen)
[2020-01-19 18:32] LABS: BACTERIA-REFLEX >30 Many /HPF (None Seen); CRYSTALS None Seen /LPF (None Seen); HYALINE CASTS 0-3 Few /LPF (None Seen); MUCUS >6 Heavy strn/LPF (None Seen)
[2020-01-19 20:15] VITALS: BP 113/61
[2020-01-20 08:00] VITALS: BP 127/61
[2020-01-20 13:20] LABS: INFLUENZA A ANTIGEN Negative (Negative); INFLUENZA B ANTIGEN Negative (Negative)
[2020-01-20 17:35] LABS: ABSOLUTE EOSINOPHILS 0.3 thou/uL (0.0-0.7); ABSOLUTE LYMPHOCYTES 1.9 thou/uL (0.8-5.3); ABSOLUTE MONOCYTES 0.8 thou/uL (0.0-1.2); ABSOLUTE NEUTROPHILS 5.7 thou/uL (1.6-8.1); BASOPHILS 0.5 %; EOSINOPHILS 3.3 %; HEMATOCRIT 38.9 % (37.0-47.0); HEMOGLOBIN 12.7 gm/dL (12.0-15.0); LYMPHOCYTES 21.2 %; MCH 28.6 pg (26.0-34.0); MCHC 32.7 g/dL (28.0-37.0); MCV 87.5 fL (80.0-100.0); MONOCYTES 9.5 %; MPV 8.9 fl. (7.2-11.1); NUCLEATED RBCS 0 /100WBC; PLATELET COUNT* 198 thou/uL (150-400); POLYS 65.5 %; RBC 4.45 mil/uL (4.20-5.00); RDW-CV 13.9 % (10.5-14.5); WBC 8.8 thou/uL (4.0-11.0)
[2020-01-20 17:52] LABS: ALBUMIN 2.3 g/dL (3.4-5.0); CALCIUM 8.2 mg/dL (8.5-10.1); CREATININE 1.2 mg/dL (0.6-1.3); MAGNESIUM 1.5 mg/dL (1.8-2.4); POTASSIUM 4.3 mmol/L (3.5-5.1); TOTAL BILIRUBIN 0.9 mg/dL (<0.1-1.0); TOTAL PROTEIN 5.5 g/dL (6.4-8.2)
[2020-01-20 20:00] VITALS: BP 120/56
[2020-01-21 07:30] VITALS: BP 117/49
[2020-01-21 19:51] VITALS: BP 131/69
[2020-01-21 20:00] VITALS: BP 131/69
[2020-01-22 08:00] VITALS: BP 127/68
[2020-01-22 20:17] VITALS: BP 111/48
[2020-01-23 08:00] VITALS: BP 138/62
[2020-01-23 12:00] VITALS: BP 126/72
[2020-01-23 19:00] VITALS: BP 134/58
[2020-01-24 08:30] VITALS: BP 121/54
[2020-01-24 19:00] VITALS: BP 109/47
[2020-01-25 05:42] LABS: ABSOLUTE BASOPHILS 0.1 thou/uL (0.0-0.2); ABSOLUTE EOSINOPHILS 0.3 thou/uL (0.0-0.7); ABSOLUTE LYMPHOCYTES 1.7 thou/uL (0.8-5.3); ABSOLUTE MONOCYTES 0.7 thou/uL (0.0-1.2); ABSOLUTE NEUTROPHILS 5.6 thou/uL (1.6-8.1); BASOPHILS 0.6 %; EOSINOPHILS 3.2 %; HEMATOCRIT 35.8 % (37.0-47.0); HEMOGLOBIN 11.8 gm/dL (12.0-15.0); LYMPHOCYTES 20.2 %; MCH 29.4 pg (26.0-34.0); MCV 89.1 fL (80.0-100.0); MONOCYTES 8.3 %; MPV 9.2 fl. (7.2-11.1); NUCLEATED RBCS 0 /100WBC; PLATELET COUNT* 125 thou/uL (150-400); POLYS 67.7 %; RBC 4.02 mil/uL (4.20-5.00); RDW-CV 13.9 % (10.5-14.5); WBC 8.3 thou/uL (4.0-11.0)
[2020-01-25 06:06] LABS: ALBUMIN 2.3 g/dL (3.4-5.0); CALCIUM 8.3 mg/dL (8.5-10.1); CREATININE 1.6 mg/dL (0.6-1.3); POTASSIUM 5.4 mmol/L (3.5-5.1); TOTAL BILIRUBIN 0.4 mg/dL (<0.1-1.0); TOTAL PROTEIN 5.5 g/dL (6.4-8.2)
[2020-01-25 08:00] VITALS: BP 115/56
[2020-01-25 19:30] VITALS: BP 114/59
[2020-01-26 07:30] VITALS: BP 117/54
[2020-01-26 20:00] VITALS: BP 114/51
[2020-01-27 08:30] VITALS: BP 136/65
[2020-01-27 20:00] VITALS: BP 122/65
[2020-01-28 08:00] VITALS: BP 118/56
[2020-01-28 21:00] VITALS: BP 142/71
[2020-01-29 07:30] VITALS: BP 127/61
[2020-01-29 20:00] VITALS: BP 123/69
[2020-01-30 08:30] VITALS: BP 126/58
[2020-01-30 20:00] VITALS: BP 96/55
[2020-01-31 08:12] VITALS: BP 138/58
[2020-01-31 20:00] VITALS: BP 121/70
[2020-02-01 05:00] LABS: HEMOGLOBIN 12.2 gm/dL (12.0-15.0); MCH 28.8 pg (26.0-34.0); MCV 87.4 fL (80.0-100.0); MPV 9.6 fl. (7.2-11.1); RBC 4.23 mil/uL (4.20-5.00); RDW-CV 14.1 % (10.5-14.5); WBC 6.2 thou/uL (4.0-11.0)
[2020-02-01 05:27] LABS: CALCIUM 9.2 mg/dL (8.5-10.1); CREATININE 1.4 mg/dL (0.6-1.3); POTASSIUM 4.6 mmol/L (3.5-5.1)
[2020-02-01 08:30] VITALS: BP 142/68
[2020-02-01 19:00] VITALS: BP 117/59
[2020-02-02 07:30] VITALS: BP 121/47
[2020-02-02 21:00] VITALS: BP 110/59
[2020-02-03 08:00] VITALS: BP 119/54
[2020-02-03 20:23] VITALS: BP 103/48
[2020-02-04 07:30] VITALS: BP 122/60
[2020-02-04 21:46] VITALS: BP 131/64
[2020-02-05 08:00] VITALS: BP 132/64
[2020-02-05 20:22] VITALS: BP 99/60
[2020-02-06 08:00] VITALS: BP 124/77
[2020-02-06 19:00] VITALS: BP 118/60
[2020-02-07 07:30] VITALS: BP 135/57
[2020-02-07] MEDS ORDERED: ELIQUIS5 MG PO (08:29)
[2020-02-07] MEDS ORDERED: CLOPIDOGREL75 MG PO (08:30)
[2020-02-07 10:41] VITALS: BP 135/57
[2020-02-07 11:06] VITALS: BP 135/57
[2020-02-07 11:07] VITALS: BP 135/57
== END 2020-02-07 12:45 | disposition home health service (06) | DRG 557 ==
LOC: M.REH 18:09
PROVIDERS: Internal Medicine; ADMIT Physical Medicine & Rehabilitation; ATTEND Physical Medicine & Rehabilitation
DX: M62.82 Rhabdomyolysis (principal); I21.4 Non-ST elevation (NSTEMI) myocardial infarction; N17.0 Acute kidney failure with tubular necrosis; N39.0 Urinary tract infection, site not specified; R65.10 Systemic inflammatory response syndrome (SIRS) of non-infectious origin without acute organ dysfunction; I82.401 Acute embolism and thrombosis of unspecified deep veins of right lower extremity; I25.10 Atherosclerotic heart disease of native coronary artery without angina pectoris; L98.9 Disorder of the skin and subcutaneous tissue, unspecified; E11.65 Type 2 diabetes mellitus with hyperglycemia; B37.9 Candidiasis, unspecified; I10 Essential (primary) hypertension; Z96.652 Presence of left artificial knee joint; E11.9 Type 2 diabetes mellitus without complications; Z20.828 Contact with and (suspected) exposure to other viral communicable diseases; Z90.710 Acquired absence of both cervix and uterus; Z98.42 Cataract extraction status, left eye; Z98.41 Cataract extraction status, right eye; Z88.2 Allergy status to sulfonamides; Z95.5 Presence of coronary angioplasty implant and graft; Z79.899 Other long term (current) drug therapy

== ENCOUNTER 2020-02-13 20:26 | Inpatient (IN) | payer MEDICARE ==
[~2020-02-13] VITALS: Ht 162.6 cm; Wt 79.4 kg
--- NOTE | ~2020-02-13 | EKG ---
[place] [address] ELECTROCARDIOGRAM REPORT Name: OSWALDO BRUNNER V Room: [place] [address] ADM IN ..#: [id number] Admission: 02/13/20 Attend Phys: Mio Phipps Discharge: Date of : 33 Date of Service: 02/13/202034 Report #: [id number] THIS REPORT FOR: //name// [facility] Test Date: 2020-02-13 Test Time: 20:35:01 Pat Name: OSWALDO BRUNNER Department: Room: [facility] Gender: F Recovery Rn: [place] : 1935 Requested By: Kevin May Order Number: [id number] MD: Measurements Intervals [place] Rate: 65 P: 27 FL: 181 QRS: -39 QRSD: 165 T: 72 QT: 468 QTc: 487 Interpretive Statements Sinus rhythm Right bundle branch block Left ventricular hypertrophy Compared to ECG 01/18/2020 00:18:01 Left ventricular hypertrophy now present Supraventricular tachycardia no longer present [email or web address] By: 34 [address] [place] /EPI
--- NOTE | ~2020-02-13 | EKG ---
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: [place] : 1935 Requested By: Kevin May Order Number: [id number] MD: Measurements Intervals [place] Rate: 34 P: -67 ME: 152 QRS: -41 QRSD: 163 T: 63 QT: 503 QTc: 379 Interpretive Statements Sinus or ectopic atrial bradycardia Atrial premature complex RBBB and LAFB Probable left ventricular hypertrophy Compared to ECG 02/13/2020 20:35:01 Bradycardia, nonsinus now present Atrial premature complex(es) now present Left anterior fascicular block now present Sinus rhythm no longer present [email or web address] By: 47 [place] EpiphanyMD /BARI
[~2020-02-13 20:26] MED LIST changes: +CLOPIDOGREL75 MG PO; +ELIQUIS5 MG PO
[2020-02-13 20:27] VITALS: BP 124/80
[2020-02-13 21:42] LABS: ABSOLUTE BASOPHILS 0.1 thou/uL (0.0-0.2); ABSOLUTE EOSINOPHILS 0.1 thou/uL (0.0-0.7); ABSOLUTE LYMPHOCYTES 1.4 thou/uL (0.8-5.3); ABSOLUTE MONOCYTES 0.5 thou/uL (0.0-1.2); ABSOLUTE NEUTROPHILS 5.9 thou/uL (1.6-8.1); BASOPHILS 0.7 %; EOSINOPHILS 1.2 %; HEMATOCRIT 40.6 % (37.0-47.0); HEMOGLOBIN 13.4 gm/dL (12.0-15.0); LYMPHOCYTES 17.8 %; MCH 28.6 pg (26.0-34.0); MCV 86.6 fL (80.0-100.0); MONOCYTES 5.9 %; MPV 9.1 fl. (7.2-11.1); NUCLEATED RBCS 0 /100WBC; PLATELET COUNT* 192 thou/uL (150-400); POLYS 74.4 %; RBC 4.69 mil/uL (4.20-5.00); RDW-CV 13.5 % (10.5-14.5); WBC 7.9 thou/uL (4.0-11.0)
[2020-02-13 21:45] LABS: CALCIUM 8.6 mg/dL (8.5-10.1); CREATININE 1.4 mg/dL (0.6-1.3)
[2020-02-13 21:55] LABS: ALBUMIN 2.9 g/dL (3.4-5.0); TOTAL BILIRUBIN 0.5 mg/dL (<0.1-1.0); TOTAL PROTEIN 6.1 g/dL (6.4-8.2)
--- NOTE | 2020-02-13 22:10 | NUR ---
ORANGE JUICE GIVEN, DRANK 100%
[2020-02-13 22:19] LABS: URINE BILIRUBIN NEGATIVE (Negative); URINE BLOOD TRACE (Negative); URINE CLARITY SL CLOUDY; URINE COLOR YELLOW; URINE GLUCOSE-RANDOM NEGATIVE (Negative); URINE KETONES NEGATIVE (Negative); URINE LEUKOCYTES-REFLEX 2+ (Negative); URINE NITRITE-REFLEX NEGATIVE (Negative); URINE PROTEIN NEGATIVE (Negative); URINE SPECIFIC GRAVITY >= 1.030 (1.005-1.030); URINE UROBILINOGEN 0.2 E.U./dl (0.2-1.0)
[2020-02-13 22:47] LABS: SQUAMOUS >10 Many /LPF (0-3); URINE WBC-REFLEX >25 Many /HPF (0-5)
[2020-02-13 22:48] LABS: CASTS None Seen /LPF (None Seen); CRYSTALS None Seen /LPF (None Seen); MUCUS None Seen strn/LPF (None Seen)
[2020-02-13 22:49] LABS: URINE RBC 0-2 Rare /HPF (0-2)
--- NOTE | 2020-02-13 22:57 | NUR ---
HR DROPS PERIODICALLY IN THE 40s. PATIENT IS ASYMPTOMATIC WITH C/O OF NECK PAIN ONLY. DR. ECHAVARRIA NOTIFIED. EKG DONE.
[2020-02-14] VITALS (7 sets, daily range): BP systolic 118–140; BP diastolic 57–73
[2020-02-14 01:20] LABS: APTT 24.5 Seconds (25.0-31.3); INR 1.2; PROTIME 11.8 Seconds (9.20-11.50)
--- NOTE | 2020-02-14 03:27 | NUR ---
BLOOD SUGAR 55. DR. ECHAVARRIA INFORMED. DEXTROSE PUSH GIVEN. TURKEY SANDWICH AND ORANGE JUICE GIVEN. PATIENT IS A/OX4.
--- NOTE | 2020-02-14 20:24 | NUR ---
Pt arrived to floor from ED at 1700. A&OX4, but forgetful. 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 VSS, though temp 99.9 on arrival. States she has frequent cough, and requesting Luden's cough drops. Daughter at bedside until 1900. Dtr confirms that pt was discharged from [facility] within the last 3 weeks. Pt has recently moved into the [facility]. Pt requires help with ADLs and uses walker at home. Will continue to monitor.
[2020-02-14 23:06] LABS: GLYCOHEMOGLOBIN (HGB A1C) 5.8 % (4.8-5.6)
[2020-02-15] VITALS: BP 122/73; BP 144/81
[2020-02-15 04:00] VITALS: BP 132/53; BP 151/82
[2020-02-15 05:09] LABS: ABSOLUTE EOSINOPHILS 0.3 thou/uL (0.0-0.7); ABSOLUTE LYMPHOCYTES 1.4 thou/uL (0.8-5.3); ABSOLUTE MONOCYTES 0.3 thou/uL (0.0-1.2); ABSOLUTE NEUTROPHILS 2.3 thou/uL (1.6-8.1); BASOPHILS 0.9 %; EOSINOPHILS 7.8 %; HEMATOCRIT 38.8 % (37.0-47.0); HEMOGLOBIN 12.9 gm/dL (12.0-15.0); LYMPHOCYTES 32.3 %; MCH 28.9 pg (26.0-34.0); MCHC 33.4 g/dL (28.0-37.0); MCV 86.5 fL (80.0-100.0); MONOCYTES 6.7 %; MPV 9.2 fl. (7.2-11.1); NUCLEATED RBCS 0 /100WBC; PLATELET COUNT* 162 thou/uL (150-400); POLYS 52.3 %; RBC 4.48 mil/uL (4.20-5.00); RDW-CV 13.9 % (10.5-14.5); WBC 4.4 thou/uL (4.0-11.0)
[2020-02-15 05:40] LABS: CALCIUM 8.4 mg/dL (8.5-10.1); POTASSIUM 3.9 mmol/L (3.5-5.1)
--- NOTE | 2020-02-15 06:38 | NUR ---
ASSUMED CARE OF PT AFTER REPORT AT 1930. PT A&OX4. FORGETFUL AT TIMES. VSS. PHYSICAL ASSESSMENT COMPLETED AND CHARTED. PT ON RA. PT TRACING SR/BBB/PAC/PVC ON TELE. PT UP WITH 1 ASSIST TO BSC. PT COMPLAINED OF NECK PAIN-MED GIVEN PER MAR. PT ABLE TO SLEEP WELL ON BED. PT REFUSED TO BE TURN EVEN AFTER EDUCATION-PT ABLE TO TURN HERSELF & GOES TO BSC EVERY ALMOST EVERY 2HRS. CALL LIGHT WITHIN REACH.
[2020-02-15 08:00] VITALS: BP 150/93
[2020-02-15 11:56] VITALS: BP 128/83
--- NOTE | 2020-02-15 12:30 | NUR ---
Pt is A&O, but forgetful. Requires assist with ADLs, resides at [facility] and plans to return today. Pt uses a walker for mobility. Pt medically stable to sc, CM updated Pt's dtr, [facility], they will transport Pt. CM updated Meme at [facility], faxed clinicals and orders, [facility] requesting rapid covid, will fax once available. Nurse report given. [facility] p:[phone] f:[phone]
[2020-02-15 14:45] VITALS: BP 128/83
--- NOTE | 2020-02-15 15:15 | NUR ---
RECEIVED REPORT. ASSUMED CARE OF PT AROUND 0730. PT A&O X4 BUT FORGETFUL. AM ASSESSMENT AND VITALS COMPLETED CHARTED. MEDS PER EMAR. PT DENIED PAIN OR DISCOMFORT. SON AT BEDSIDE. BLOOD SUGAR STABLIZING. DISCHARGE ORDERS RECEIVED. DISCHARGE COMPELTED DOCUMENTED. DISCHARGE PACKET MADE AND GIVEN TO SON, WHO WILL GIVE IT TO STAFF AT [facility]. IV AND YELLOW PAGES SPACE SALESPERSON REMOVED. ALL BELONGINGS GATHERED AND SENT OUT WITH THE PT. REPORT CALLED TO LUCINA AT [facility]. PT LEFT UNIT IN WC WITH NURSING STAFF. PT LEFT HOSPITAL IN CAR WITH SON, GOING TO THE [facility].
== END 2020-02-15 15:10 | disposition home or self-care (01) | DRG 637 ==
LOC: M.ERS 20:26 → M.TBA-ER 22:50 → M.2W 02-14 16:58
PROVIDERS: Family Medicine; Internal Medicine; ADMIT Family Medicine; ATTEND Family Medicine
DX: E11.649 Type 2 diabetes mellitus with hypoglycemia without coma (principal); G93.41 Metabolic encephalopathy; N39.0 Urinary tract infection, site not specified; N17.9 Acute kidney failure, unspecified; I25.10 Atherosclerotic heart disease of native coronary artery without angina pectoris; E11.22 Type 2 diabetes mellitus with diabetic chronic kidney disease; I12.9 Hypertensive chronic kidney disease with stage 1 through stage 4 chronic kidney disease, or unspecified chronic kidney disease; I25.5 Ischemic cardiomyopathy; D32.9 Benign neoplasm of meninges, unspecified; E78.5 Hyperlipidemia, unspecified; I48.0 Paroxysmal atrial fibrillation; M19.90 Unspecified osteoarthritis, unspecified site; R00.1 Bradycardia, unspecified; E78.00 Pure hypercholesterolemia, unspecified; G40.909 Epilepsy, unspecified, not intractable, without status epilepticus; N18.9 Chronic kidney disease, unspecified; Z96.652 Presence of left artificial knee joint; Z20.828 Contact with and (suspected) exposure to other viral communicable diseases; Z86.718 Personal history of other venous thrombosis and embolism; Z90.710 Acquired absence of both cervix and uterus; Z95.5 Presence of coronary angioplasty implant and graft; Z98.42 Cataract extraction status, left eye; Z98.41 Cataract extraction status, right eye; I25.2 Old myocardial infarction; Z79.01 Long term (current) use of anticoagulants; Z79.84 Long term (current) use of oral hypoglycemic drugs; Z79.899 Other long term (current) drug therapy; Z88.2 Allergy status to sulfonamides